=== PATIENT | male | born 1940 | race Caucasian/White ===

== ENCOUNTER → 2017-01-23 | Outpatient (CLI) | payer MEDICARE ==
--- NOTE | 2017-01-23 16:25 | REP ---
RENAL AND BLADDER ULTRASOUND: Real-time sonographic evaluation of the kidneys performed and compared to prior study of 02/29/2012. The right kidney measures 11.4 x 6.7 x 6.0 cm and left kidney 12.2 x 5.8 x 6.2 cm. There is no hydronephrosis bilaterally. There is again a complex hypoechoic nodule with central cystic component in the upper pole of the right kidney measuring 3.3 x 2.5 x 3.0 cm. The central cystic component measures 1.3 x 1.2 x 1.5 cm. This complex nodule was seen on the prior study and at that time it measured 2.9 x 2.7 x 2.4 cm. Therefore, it has increased in diameter by approximately 3 mm since the prior exam about 5 years ago. A subsequent MRI showed nonsuspicious features consistent with a complex cyst. Multiple other cysts are seen bilaterally, a 7 mm cyst in the mid right kidney, another in the lower pole of the right kidney, and two cysts in the lower pole of the left kidney measuring 1 cm in diameter maximally. There is no hydronephrosis bilaterally. No definite renal stones are seen. The urinary bladder measures 8.3 x 5.9 x 6.5 cm for a total volume of 208 mL. There are bilateral ureteral jets in the urinary bladder with Doppler color evaluation. No bladder mass or calculus is seen. Postvoid residual is 50 ml, 24% of the original volume. IMPRESSION: No hydronephrosis. Bilateral renal cysts. Urinary bladder demonstrates no mass or calculus with postvoid residual of 24%. Signed by David Cordoba MD 01/24/2017 07:14 P
== END ==
LOC: M RAD 13:22
PROVIDERS: ATTEND Internal Medicine Nephrology
DX: N18.3 Chronic kidney disease, stage 3 (moderate) (principal); E11.22 Type 2 diabetes mellitus with diabetic chronic kidney disease; N28.1 Cyst of kidney, acquired; I10 Essential (primary) hypertension

== ENCOUNTER → 2017-06-25 | Outpatient (CLI) | payer OTHER ==
[2017-06-25 16:45] LABS: IMMUNOGLOBULIN A 63.8 MG/DL (70-400); IRON (FE) 80 UG/DL (65-175); PERCENT SATURATION 21.4 % (19.7-50.0); TOTAL IRON BINDING CAPACITY 374 UG/DL (250-450)
[2017-06-27 14:14] LABS: TISSUE TRANSGLUTAMINASE IgA <2 U/mL (0-3)
== END ==
LOC: M LAB 14:39
DX: D64.9 Anemia, unspecified (principal)
CPT/HCPCS: 83550

== ENCOUNTER 2017-07-12 07:26 | Day surgery (SDC) | payer OTHER, MEDICARE ==
[2017-07-12] MEDS ORDERED: PROPOFOL 500 MG/50 ML VIAL As Ordered (07:41)
[2017-07-12] MEDS: NS 1,000 ML IV (13:30)
[2017-07-12] MEDS ORDERED: LIDOCAINE 2% INJ 100 MG/5 ML SDV (FOR ANES.) As Ordered (14:22)
[2017-07-12] MEDS ORDERED: GLYCOPYRROLATE INJ 0.2 MG/ML 2 ML VIAL As Ordered (14:32)
== END 2017-07-12 15:54 | disposition home or self-care (01) ==
LOC: M OPP 07:26
DX: K62.5 Hemorrhage of anus and rectum (principal); K59.00 Constipation, unspecified; K64.8 Other hemorrhoids; D50.9 Iron deficiency anemia, unspecified; K29.70 Gastritis, unspecified, without bleeding; K31.4 Gastric diverticulum; I25.10 Atherosclerotic heart disease of native coronary artery without angina pectoris; I12.9 Hypertensive chronic kidney disease with stage 1 through stage 4 chronic kidney disease, or unspecified chronic kidney disease; E78.5 Hyperlipidemia, unspecified; Z95.5 Presence of coronary angioplasty implant and graft; E11.9 Type 2 diabetes mellitus without complications; N18.9 Chronic kidney disease, unspecified; M10.9 Gout, unspecified; M19.90 Unspecified osteoarthritis, unspecified site; F31.9 Bipolar disorder, unspecified; G47.30 Sleep apnea, unspecified; R06.83 Snoring; Z88.8 Allergy status to other drugs, medicaments and biological substances; Z79.82 Long term (current) use of aspirin; Z79.899 Other long term (current) drug therapy; Z79.02 Long term (current) use of antithrombotics/antiplatelets; Z79.84 Long term (current) use of oral hypoglycemic drugs
CPT/HCPCS: 45378

== ENCOUNTER → 2020-11-22 | Outpatient (REF) | payer MEDICARE ==
[~2020-11-22] MED LIST: AMLO1TAB24 PO; ASPI81TA26 PO; CHLO25TA PO; COLA100C5 PO; DEPA1TAB3 PO; FISH5CAP PO; GLIP5TAB20 PO; LISI5TAB11 PO; MAGN400T33 PO; MAGN400T5 PO; METO25TA4 PO; MILK120011 PO; OCUVTAB PO; PAXI20TA29 PO; PLAV1TAB2 PO; VITA100018 PO; VITA250T30 PO; VITA50005 PO; ZYLO300T6 PO
== END ==
LOC: M LAB REF 16:59
PROVIDERS: ATTEND Internal Medicine Nephrology
DX: N18.31 Chronic kidney disease, stage 3a (principal)

== ENCOUNTER → 2021-05-25 | Outpatient (REF) | payer MEDICARE | LOC: M LAB REF 16:53 | PROVIDERS: ATTEND Nurse Practitioner Family | DX: N18.31 Chronic kidney disease, stage 3a (principal) ==

== ENCOUNTER → 2023-06-07 | Outpatient (CLI) | payer MEDICARE ==
[~2023-06-07] MED LIST changes: +CLOP75TA99 PO; -PAXI20TA29 PO; +PAXI20TA30 PO; -PLAV1TAB2 PO
== END ==
LOC: M RAD 12:38
PROVIDERS: ATTEND Nurse Practitioner Family
DX: N18.31 Chronic kidney disease, stage 3a (principal); R33.9 Retention of urine, unspecified